=== PATIENT | male | born 1955 | race Caucasian/White ===

== ENCOUNTER 2016-09-11 07:24 | Day surgery (SDC) | payer OTHER ==
[~2016-09-11] VITALS: Ht 177.8 cm; Wt 65.2 kg
[2016-09-11] VITALS (7 sets, daily range): BP systolic 126–136; BP diastolic 73–99; PULSE 54–72; RESP 10–16; O2SAT 95–100
[2016-09-11] MEDS: Lactated Ringer's 1,000 ML IV SCH ×2 (05:32→09:24)
[~2016-09-11 07:24] MED LIST: ASCO-294 PO; ASPI-973 PO; FISH12002 PO; GLUC100016 PO; Levofloxacin 500 mg/100 mL D5W IV ONE; MULT-1018 PO; TAMS0.4C98 PO; VIT1TABL83 PO
[2016-09-11] MEDS ORDERED: fentaNYL-PF 50 mCg/mL 2 mL Inj ONE (07:25)
[2016-09-11] MEDS ORDERED: Ondansetron 2 mg/mL 2 mL Inj ONE (07:25)
[2016-09-11] MEDS ORDERED: Propofol 10,000 mCg/mL 20 mL Inj ONE (07:25)
[2016-09-11] MEDS ORDERED: Lidocaine PF 1% 30 mL Inj ONE (07:25)
[2016-09-11] MEDS ORDERED: Lactated Ringer's 500 ML IV PRN (08:51)
[2016-09-11] MEDS ORDERED: Lactated Ringer's 1,000 ML IV SCH (08:51)
--- NOTE | 2016-09-11 08:51 | PCM.HPANE ---
Patient Data Date of Service: Sep 11, 2016 Surgeon Admitting Provider: Attending Provider:Myrtle Boone MD Primary Care Physician:Judah Morales DO Other Provider:Harvey Bueno Anesthesia Reason for Visit Urinary Retention Ht/WT & BMI Height (Feet): 5 Height (Inches): 10.00 Weight (Kilograms): 65.2 Body Mass Index 20.00 Allergies Coded Allergies: Penicillins (Verified Allergy, Unknown, unknown, 09/09/16) Past Anesthesia History Anesthesia History: Denies:: Abnormal Airway, Anesthesia Reactions, Difficult Intubation, Malignant Hyperthermia Diabetes History Hx Diabetes?: No MRSA MRSA: No Medications Blood Thinner: Aspirin Home Meds Incl Beta Uday: No Reported Medications Ascorbate Calcium (Vitamin C)500 Mg [id number] Mg PO DAILY 09/09/16 Vit B Comp/C/FA/Iron/Vit E (Vitamin B Complex Tablet)1 Each Tablet1 Each PO DAILY 09/09/16 Tamsulosin (Flomax)0.4 Mg Capsule0.8 Mg PO DAILY Ref 0 09/09/16 Fish Oil/Borage/Flax/Om3,6,9#1 ([place] 3-6-9 1,200 mg Softgel)1,200 Mg Capsule1, 200 Mg PO DAILY 09/09/16 Multivitamin (Multi Vitamin Daily)1 Each Tablet1 Each PO DAILY 30 Days Ref 0 09/09/16 Glucosamine Sulfate 2Kcl (Glucosamine)1,000 Mg [id number] Mg PO DAILY 09/09/16 Aspirin 81 Mg [id number] Mg PO DAILY Ref 0 09/09/16 Discontinued Reported Medications Rosuvastatin-Expunged Drug, Do Not Renew! (Crestor-Expunged Drug, Do Not Renew!) 10 Mg [id number] Mg PO HS 10/17/10 History History of ENT Problems?: Yes HEENT History: Denies:: Abnormal Airway Difficult Intubation Hx of Heart Problems?: Yes Cardiovascular History: Denies:: Heart Murmur Hypertension (HYPERLIPIDEMIA) Hx of Respiratory Problem?: No Respiratory History: Denies:: Use of C-PAP Machine Hx Neurologic Problems?: No Hx of GI Problems?: No Hx of Problems?: Yes Other Pertinent History: SELF CATHS PRN Male Hx: Positive for:: Prostate Problems (C/OF LUTS URINARY RETENTION/BPH= CURRENT PROBLEM) Denies:: Scrotal Mass Testicular Surgery Skin History: Positive for:: History Skin Disorders? (ACTINIC KERATOSIS, ONYCHOMYCOSIS) Denies:: Pressure Ulcers Hx Musculoskeletal Problems?: Yes Musculoskeletal History: Positive for:: Back Injury (schoulder, tendon and bone spur) Musculoskeletal Trauma (S/P ROTATOR CUFF RPR) Osteoarthritis Hx of Psycho/Social Problems?: No Hx Surgeries?: Yes (LASIK, ROTATOR CUFF RPR) Hx Any Other Health Problems?: Yes Other History: Denies:: Cancer Endocrine Disease Hospitalization Thyroid Disease History Blood Transfusions: Denies:: Blood Transfusions Hx Diabetes: No Hx Alcohol Use: YesAlcoholic Drinks Per Day: 5/WEEKHx Substance Use: NoHave You Smoked inLast 12 mo: No Stop/Bang Treated for Sleep Apnea?: No Do You Have a CPAP Machine?: No S-Snoring: Do You Snore Loudly: No T-Tired: feel tired, fatigued: No O-Obsered: Observed not breath: No P-Blood Pressure: treated: No B- Body Mass Index > 35 kg/m2: No A- Age over 50: Yes N- Neck Large Circumference: No G- Gender Male: Yes FAITH Total Score: 2 FAITH Risk Assessment: Low Risk, <3 Yes Risk Assessment Category Category 1A: Patient has history of documented sleep apnea, and HAS NOT received any narcotic, sedative or anesthesia administration during this stay. Category 1B: Patient has history of documented sleep apnea, and HAS received any narcotic , sedative or anesthesia administration during this stay Category 2: Patient has SUSPECTED Obstructive Sleep Apnea, and HAS received any narcotic , sedative or anesthesia administration during this stay. Category 3: Patient has SUSPECTED Obstructive Sleep Apnea and HAS NOT received narcotic, sedative or anesthesia administration during this stay. Category 4: Outpatient in Procedural Areas with known sleep apnea or who screen positive for High Risk via the STOP/BANG questionnaire. Exam Exam Vital Signs Vital Signs Date Time Temp Pulse Resp B/P Pulse Ox O2 Delivery O2 Flow Rate FiO2 09/11/16 07:54 38.5 55 16 129/83 100 Room Air General Appearance: Alert, Oriented X3, Cooperative HEENT/AIRWAY: MP 2, Neck Movement (Full), Mouth Opening (Wide) Lungs: Clear to Auscultation, Normal Air Movement Heart: Regular Rate/Rhythm, Normal S1, Normal S2 Meds/Labs/Diagnostics Admission Meds Current Medications Lactated Ringer's (Lr) 1,000 ml @ 120 mls/hr Q8H20M IV Last administered on t 05:32; Start 09/11/16 at 05:00; Stop 09/11/16 at 13:19 Labs outside labs reviewed Plan Impression Patient chart reviewed, patient interviewed and anesthestic plan with risks, benefits, and alternatives discussed, and informed consent obtained. NPO Status: 09/10 at 1830 ASA Physical Status: ASA2 Mod Systemic Disease Anesthetic Plan: GA Bene/Risks/Altern/Consents: Yes HP Complete Prior to Induction: Yes Marcello Alex MD Sep 11, 2016 08:13
[2016-09-11] MEDS ORDERED: hydrALAZINE 20 mg/mL Inj IVPUSH PRN (08:55)
[2016-09-11] MEDS ORDERED: EPHEDrine Sulfate 50 mg/mL Inj IVPUSH PRN (08:55)
[2016-09-11] MEDS ORDERED: HYDROmorphone 1 mg/mL Inj IVPUSH PRN (08:55)
[2016-09-11] MEDS ORDERED: Dexamethasone 4 mg/mL Inj IVPUSH PRN (08:55)
[2016-09-11] MEDS ORDERED: fentaNYL-PF 50 mCg/mL 2 mL Inj IVPUSH PRN (08:55)
[2016-09-11] MEDS ORDERED: MetoCLOpramide 5 mg/mL 2 mL Inj IVPUSH PRN (08:55)
[2016-09-11] MEDS ORDERED: Phenylephrine 10,000 mCg/mL Inj IVPUSH PRN (08:55)
[2016-09-11] MEDS ORDERED: Ondansetron 2 mg/mL 2 mL Inj IVPUSH PRN (08:55)
[2016-09-11] MEDS ORDERED: Atropine 0.4 mg/mL Inj IVPUSH PRN (08:55)
[2016-09-11] MEDS ORDERED: Labetalol 5 mg/mL 4 mL Inj IV PRN (08:55)
[2016-09-11] MEDS ORDERED: Belladonna Alk-Opium 60 mg Rectal Suppository RECTAL ONE ×2 (10:00→10:01)
[2016-09-11] MEDS ORDERED: HYDROcodone-APAP 5-325 mg Tablet PO PRN (10:25)
[2016-09-11] MEDS ORDERED: Ondansetron 8 mg ODT Tablet PO PRN (10:25)
--- NOTE | 2016-09-11 10:30 | PCM.ANEP1 ---
Post Anesthesia Phase 1 PACU Phase 1 Assessment Date of Service: Sep 11, 2016 Vital Signs Vital Signs Date Time Temp Pulse Resp B/P Pulse Ox O2 Delivery O2 Flow Rate FiO2 09/11/16 10:25 70 10 132/73 97 Simple Mask 10 09/11/16 10:21 36.6 72 15 136/99 96 Simple Mask 10 09/11/16 07:54 38.5 55 16 129/83 100 Room Air Anesthetic Administered: GA Level of Alertness: Awake, talking AJ's with Equal Strength: Yes Pain: No Nausea or Vomiting: No Oxygen Delivery: Simple Mask Lungs: Normal Air Movement Marcello Alex MD Sep 11, 2016 10:30
--- NOTE | 2016-09-11 11:09 | PCM.ANEP2 ---
Post Anesthesia Evaluation ASA/CMS Post Anesthesia Date of Service: Sep 11, 2016 VS in Patient's Normal Range?: Yes Resp Stable; Airway Patent?: Yes CV Function & Hydration Stable: Yes Mental Status Recovered?: Yes Pain control Satisfactory?: Yes N/V Control Satisfactory?: Yes Marcello Alex MD Sep 11, 2016 11:09
--- NOTE | 2016-09-12 20:34 | OP ---
[address] [address] OPERATIVE REPORT PATIENT: JILLIAN MEIER : 1955 MR#: [id number] ADMIT: 09/11/2016 JOB ID: [id number] DATE OF SURGERY: 09/11/2016 PROCEDURE: Transurethral resection of prostate. SURGEON: Myrtle Boone MD ANESTHESIA: General. PREOPERATIVE DIAGNOSIS(ES): 1. Retention of urine. 2. Benign prostatic hyperplasia. POSTOPERATIVE DIAGNOSIS(ES): 1. Retention of urine. 2. Benign prostatic hyperplasia. INDICATIONS: Patient is a 60-year-old gentleman with history of urinary retention, difficulty emptying the bladder and BPH, bladder trabeculation and cellules and diverticula, electing transurethral resection of prostate in attempt to begin voiding better. PROCEDURE IN DETAIL: After appropriate informed consent was obtained, patient brought to the operating room. He received IV antibiotics prior to the procedure. SCDs were placed. Adequate general anesthesia was induced. He was carefully placed in the dorsal lithotomy position. All pressure points were carefully padded. Cleaned, prepped, and draped in the usual sterile fashion. Rigid scope was introduced into the patient's bladder which was noted to be once again moderate to severely trabeculated with some diverticula and cellules. The prostate showed kissing lobes and somewhat friable. Verumontanum was easily identified as was the sphincter. We then removed the cystoscope and entered with the Olympus Thunderbeat generator and the resectoscope Prostate itself was initially debulked using the cutting loop with the bipolar cautery or generator and this was done in quadrants and in sections, careful not to pass the verumontanum and the area of the sphincter. Hemostasis was good. This was achieved with electrocautery. Once the prostate was largely debulked, we switched over to the button implement and used this to ablate further tissue and achieve excellent hemostasis. At the termination of the procedure, there was a wide-open view from the verumontanum up to the bladder opening. Ureteral orifices were noted and preserved. Hemostasis was excellent. Urine was clear to light pink. A 22-Honduran Leiva catheter was placed to gravity drainage. The patient tolerated the procedure well and was returned to the postanesthesia care unit.
--- NOTE | 2016-09-14 14:24 | PATH ---
SURGICAL PATHOLOGY Attending Physician:Myrtle Boone MD CASE STATUS: Signed Out PATIENT NAME: JILLIAN MEIER PID: [id number] : 1955 DATE COLLECTED:09/11/2016 23:08 SPECIMEN: Prostate, Chips CLINICAL HISTORY: URINARY RETENTION, TURP RETENTION 1). RESECTED PROSTATE FINAL DIAGNOSIS: 1.PROSTATE CHIPS (TRANSURETHRAL RESECTION, 5.7 GRAMS): NODULAR HYPERPLASIA OF GLANDS AND STROMA. Negative for malignancy. ICD10 code N40.1 GROSS DESCRIPTION: The specimen is received in formalin, labeled with the patient's name, sublabeled as resected prostate, and consists of multiple fragments of butler-white rubbery prostatic tissue (5.7 g, 4.0 x 3.8 x 0.5 Cm in aggregate). Section code: (A-C) prostatic tissue. Specimen entirely submitted. 09/12/16 JM MICRO DESCRIPTION: See diagnosis. ICD-9 CODES: CPT CODES: 1: 91596 Electronically Signed Out Mike Horn MD [facility] [address], [place] [address] Technical component performed at [facility], [address] [place] [address] Ave[address], [place], [address]
== END 2016-09-11 23:59 | disposition home or self-care (01) ==
LOC: SAS 07:24
PROVIDERS: ATTEND Urology
DX: N40.1 Benign prostatic hyperplasia with lower urinary tract symptoms (principal); R33.9 Retention of urine, unspecified; R35.1 Nocturia; N32.89 Other specified disorders of bladder; E78.2 Mixed hyperlipidemia; Z87.891 Personal history of nicotine dependence; Z79.82 Long term (current) use of aspirin
CPT/HCPCS: 52601; J2250; J2405; J3010; J7120